=== PATIENT | male | born 2000 ===

== ENCOUNTER 2020-01-16 07:52 | Emergency (ER) | payer OTHER, SELFPAY ==
--- NOTE | ~2020-01-16 | XR_ITS ---
EXAMINATION: XR foot LT min 3V DATE: 01/16/2020 08:15 INDICATION: Pain across the dorsum of the foot post trauma TECHNIQUE: Dorsoplantar, two oblique and lateral views of the left foot were obtained. COMPARISON: None. FINDINGS: Alignment is normal. No fracture. Mild osteoarthritis at the first metatarsophalangeal joint with sma ll marginal osteophytes and negligible nonuniform joint space narrowing. Remaining joint spaces are n ormal. Soft tissues are unremarkable. IMPRESSION: 1. No acute osseous abnormality. Reviewed, dictated and finalized at location A.
[2020-01-16 07:58] VITALS: BP 167/82; PULSE 96; RESP 16; TEMP 36.6; O2SAT 100
--- NOTE | 2020-01-16 08:10 | ED.LOWEXIN ---
HPI - Extremity Injury (Lower) General Chief Complaint: Extremity Injury, Lower Stated Complaint: left foot pain Time Seen by Provider: 01/16/20 07:57 History of Present Illness HPI Narrative: Patient is a 19-year-old male who presents the ER with left foot pain. He was walking last night and take the box ring of a bed. He has increased pain with bearing weight. He has bruising over the dorsal aspect of the foot at the second and third MTP. He has bruising along the third toe. He has discomfort when he tries to flex and extend the toes. Has not tried any pain medication. Also reports mild discomfort dorsal aspect of the foot in the midfoot region. Related Data Allergies Allergy/AdvReac Type Severity Reaction Status Date / Time No Known Allergies Allergy Mild Verified 01/16/20 08:03 Review of Systems Review of Systems: All systems reviewed & are unremarkable except as noted in HPI and below Musculoskeletal: Musculoskeletal: Reports arthralgias Comments: Left foot pain Integumentary/Breasts: Comments: Bruising Neurologic: Denies focal weakness and Denies numbness PMFSH Past Medical History Medical History (Updated 01/16/20 @ 08:52 by Enrrique Mustafa MD) Type 1 diabetes Surgical History Surgical History (Updated 01/16/20 @ 08:11 by Enrrique Mustafa MD) History of tonsillectomy Family History Family History (Updated 05/01/18 @ 14:59 by DOCTOR UNKNOWN) Other Diabetes mellitus Family history of mental disorder Family history of obesity Family history of thyroid disease Hypertension Social History Social History Alcohol intake: never Gender identity (if verbalized by the patient): Male Exam Narrative: Exam Narrative: GENERAL: Well-appearing, well-nourished, and in no acute distress. HEAD: Normocephalic, atraumatic. EXTREMITIES: Focused exam left foot shows bruising over the dorsum of the foot at the second and third MTP is. Point tender at this region also point tender in the midfoot dorsal aspect. No tenderness over the base of fifth metatarsal or on the plantar aspect of the foot. No tenderness over the ankle bilaterally. Range of motion intact at the ankle. Limited range of motion of the toes due to pain. Dorsalis pedis pulse intact. SKIN: Warm, dry, no rash. Bruising as noted above. NEURO: No focal deficits. Alert and oriented x3. PSYCH: Normal mood and affect. Course Vital Signs Vital signs: Vital Signs Temperature 97.8 F 01/16/20 07:58 Pulse Rate 96 01/16/20 07:58 Respiratory Rate 16 01/16/20 07:58 Blood Pressure 167/82 H 01/16/20 07:58 Pulse Oximetry 100 01/16/20 07:58 Temperature 97.8 F 01/16/20 07:58 Pulse Rate 96 01/16/20 07:58 Respiratory Rate 16 01/16/20 07:58 Blood Pressure 167/82 H 01/16/20 07:58 Pulse Oximetry 100 01/16/20 07:58 MDM - Extremity Injury (Lower) Imaging Data Radiologist's impression: ITS Impressions Foot X-Ray 01/16/20 08:19 IMPRESSION: 1. No acute osseous abnormality. Discharge Plan Discharge Clinical Impression: Contusion of foot, Foot sprain Patient Disposition: Home, Self-Care Condition: Stable Instructions: Foot Contusion (ED), Foot Sprain (ED), R.I.C.E. Treatment (ED) Additional Instructions: Return to the ER should you suffer additional injury, you have chest pain or shortness of breath, you have a cold blue foot, you have additional concerns. Prescriptions: New naproxen 500 mg tablet 500 mg PO BID Qty: 20 RF: 0 No Action Glucagon Emergency Kit (human) 1 mg recon soln 1 mg SUB-Q Q20M PRN (Reason: hypoglycemia) Qty: 1 RF: 0 Lantus Solostar U-100 Insulin 100 unit/mL (3 mL) insulin pen 80 unit subcut DAILY 90 Days Qty: 72 RF: 1 insulin lispro [Humalog KwikPen Insulin] 100 unit/mL insulin pen See Rx Instructions .ROUTE .COMPLEX Qty: 90 RF: 1 (DME) Dexcom G6 [place] Misc See Rx Instructions .ROUTE .MEDSUPPLY Qty: 1 RF: 0 (D
== END 2020-01-16 09:43 | disposition home or self-care (01) ==
PROVIDERS: Emergency Provider Emergency Medicine
DX: S93.602A Unspecified sprain of left foot, initial encounter (principal); S90.32XA Contusion of left foot, initial encounter; E10.9 Type 1 diabetes mellitus without complications; W22.03XA Walked into furniture, initial encounter
CPT/HCPCS: 73630; 99283

== ENCOUNTER → 2020-10-07 15:29 | Outpatient (CLI) | payer OTHER, SELFPAY ==
--- NOTE | ~2020-10-07 | US_ITS ---
EXAMINATION: US soft tissue upper back DATE: 10/07/2020 15:43 INDICATION: Localized swelling, mass and lump at the infrascapular right posterior thorax. TECHNIQUE: Multiple grayscale and Doppler ultrasound images of the infrascapular region of concern of the posterior right thorax were obtained. COMPARISON: None FINDINGS: Subcutaneous 5.5 x 4.6 x 2.2 cm heterogeneously hypoechoic mass at the region of concern which lies a long the superficial margin of the underlying musculature. Within the mass is a significantly more hy poechoic region measuring approximately 1 cm diameter which contains internal vascular flow on color Doppler. No significant internal vascularity within the remainder of the lesion which could represent either additional solid tissue or potentially complex fluid/hematoma or abscess/phlegmonous change. IMPRESSION: 1. 5.5 x 4.6 x 2.2 cm hypoechoic mass at the region of concern at least a portion of which demonstrat es internal vascularity which raises concern for neoplasm which could be either benign or malignant. Consider pre and postcontrast MRI for further evaluation and to aid in biopsy planning which would li roxi be required for definitive determination. Reviewed, dictated and finalized at location B. LESS TELEGRAPHER IMPRESSION: 1. 5.5 x 4.6 x 2.2 cm hypoechoic mass at the region of concern at least a porti on of which demonstrates internal vascularity which raises concern for neoplasm which could be either benign or malignant. Consider pre and postcontrast MRI f or further evaluation and to aid in biopsy planning which would likely be requi red for definitive determination.
== END ==
PROVIDERS: PCP Family Medicine; Visit Provider Nurse Practitioner Family
DX: R22.9 Localized swelling, mass and lump, unspecified (principal)
CPT/HCPCS: 76604

== ENCOUNTER → 2020-10-20 08:09 | Outpatient (CLI) | payer OTHER, SELFPAY ==
--- NOTE | ~2020-10-20 | MR_ITS ---
EXAMINATION: MR chest wo/w con DATE: 10/20/2020 09:17 INDICATION: Right posterior thorax mass. TECHNIQUE: Magnetic resonance imaging (MRI) of the right posterior thorax was performed without and w ith 20 mL MultiHance intravenous contrast. Sequences included axial, coronal, and sagittal T1-weighte d FSE and T2-weighted FS FSE, axial T1-weighted FS FSE, coronal STIR FSE, and postcontrast axial, cor onal, and sagittal T1-weighted FS FSE. COMPARISON: Ultrasound 10/07/2020 FINDINGS: In the subcutaneous fat superficial to right latissimus dorsi muscle, there is a 5.5 x 2.7 x 2.8 cm cystic mass with thick enhancing rim. IMPRESSION: 1. 5.5 cm cystic mass with thick enhancing rim in the subcutaneous fat superficial to right latissimu s dorsi muscle. This finding is suspicious for neoplasm. Ultrasound-guided core needle biopsy is renetta mmended. Reviewed, dictated and finalized at location A. EWORKING SANDER IMPRESSION: 1. 5.5 cm cystic mass with thick enhancing rim in the subcutaneous fat superfic ial to right latissimus dorsi muscle. This finding is suspicious for neoplasm. Ultrasound-guided core needle biopsy is recommended.
[2020-10-20 08:47] LABS: Estimated Glomerular Filt Rate > 60
== END ==
PROVIDERS: PCP Family Medicine; Visit Provider Nurse Practitioner Family
DX: R93.89 Abnormal findings on diagnostic imaging of other specified body structures (principal)
CPT/HCPCS: 71552; A9577